=== PATIENT | male | born 1965 | race Caucasian/White ===

== ENCOUNTER 2016-07-23 14:41 | Emergency (ER) | payer MEDICAID ==
[~2016-07-23] VITALS: Ht 177.8 cm; Wt 83.9 kg
[~2016-07-23 14:41] MED LIST: HYDR-3606 PO; LORA-258 PO; TACR1CAP PO
[2016-07-23 14:45] VITALS: BP_SYST 133
--- NOTE | 2016-07-23 14:51 | NUR ---
Pt placed to ER bed 04. Report given to KAELYN Levy.
--- NOTE | 2016-07-23 14:55 | NUR ---
ER at bedside examining patient.
--- NOTE | 2016-07-23 15:24 | NUR ---
TRANSPORTED VIA WHEELCHAIR TO RADIOLOGY DEPT.
[2016-07-23] MEDS ORDERED: HYDROcodone/ACETAMIN 5-325 MG TAB (NORCO/ VICODIN) PO ONE (15:30)
--- NOTE | 2016-07-23 15:34 | NUR ---
RETURNED TO ROOM 4.
--- NOTE | 2016-07-23 15:54 | NUR ---
CRUTCHES AND ORTHOTIC SHOE PROVIDED.
== END 2016-07-23 16:00 | disposition home or self-care (01) ==
LOC: SED 14:41
DX: S92.511A Displaced fracture of proximal phalanx of right lesser toe(s), initial encounter for closed fracture (principal); F17.210 Nicotine dependence, cigarettes, uncomplicated; Z85.05 Personal history of malignant neoplasm of liver; Z86.19 Personal history of other infectious and parasitic diseases; Z94.4 Liver transplant status; Z71.6 Tobacco abuse counseling; W20.8XXA Other cause of strike by thrown, projected or falling object, initial encounter; Y99.8 Other external cause status; Y92.89 Other specified places as the place of occurrence of the external cause; Y93.89 Activity, other specified
CPT/HCPCS: 99284